=== PATIENT | female | born 1975 ===

== ENCOUNTER 2017-08-02 12:39 | Emergency (ER) | payer OTHER ==
--- NOTE | 2017-08-02 18:29 | OBHP ---
Datetime: 08/02/2017 14:31 IP Adm Impression: , intrauterine ; No Active Labor IP Admit Plan: Discharge home Admit Comment, IP Provider: 41 y.o. LMP unsure, BLADIMIR 08/31/17, EGA 35w 6d, referred for NST maxim rubalcava to [place] cord insertion of her placenta. (+) AFM; denies LOF, VB, Ctx. Not sexually active - "I just don't like it". care: [facility] - denies any issues. AMA. Last visit 08/01/17; next visit 08/07/17. P Ob: primip P SPOT FACER: 15 x monthly x 5. Denies h/o STI. (+) abnl Pap 2007, S/P cryo; Pap since have been (-). No h/o fibroids. PMH: denies PSH: 2016, removal of cysts from her scalp NKDA Meds: PNV - QD Soc Hx; denies tobacco, illicit drug or EtOh use. With FOB x 3yrs; lives with him. 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 Father alive 66 - HTN. MGM - skin cancer P.E.: as above. Mildly obese in NAD. Awake, alert, oriented to time, person and place. Pleasant a nd cooperative Assessment: 41 y.o. P0, 35w 6d, Batt[place] cord insertion of placenta. NST reactive/ Category 1 tr acing. S/P BPP today, BPS /8. Clinically stable. Plan: 1) Discharge home 2) Reviewed S/S PTL 3) Keep scheduled appointments Pelvic Type - PN: Not Done Extremities - PN: Normal Abdomen - PN: Normal Back - PN: Normal Breast - PN: Not Done Lungs - PN: Normal Heart - PN: Normal Thyroid - PN: Not Done Neurologic - PN: Normal HEENT - PN: Normal General - PN: Normal FHR - Baseline A Provider: 160 Contraction Comments Provider: none Comments, ACOG Physical Exam: Abdomen: Gravid. Soft, non tender. Fundal height 36 cm All other systems reviewed and are negative Gestation - Est Wks by US: 35w 6d EGA AdmitDate IP: 35.6 Vital Signs Provider: Reviewed IP Chief Complaint: evaluation NICHD Variability Prov Fetus A: Moderate 6-25bpm NICHD Accel Fetus A IP Provider: 15X15 FHR Category Provider Fetus A: Category I NICHD Decel Fetus A IP Provider: None Dilatation, Provider: deferred Genitourinary Exam: Not Done DTRs - PN: Not Done
[2017-08-02 19:41] VITALS: BP 111/58; PULSE 92
== END 2017-08-02 15:22 | disposition home or self-care (01) ==
LOC: C.EROB 12:39
DX: Z36.89 Encounter for other specified antenatal screening (principal); Z3A.35 35 weeks gestation of pregnancy

== ENCOUNTER 2017-08-27 09:32 | Inpatient (IN) | payer OTHER ==
--- NOTE | 2017-08-27 10:18 | OBADHP ---
Datetime: 08/27/2017 09:54 IP Chief Complaint Other: Vaginal Spotting after wiping Admit Comment, IP Provider: 41yo with IUP at 39wks c/o pinkish discharge after wiping this morn ing. She feels good movements and denies LOF.Pt is an AMA and has been having weekly BPP. H/O b att[place]ore insertion of the placenta which has subsequently reported anterior positioning from latest ultrasounds. TOCO- None FHR- 150, Minimal to moderate variability, Vertex, Cx: 0/50/-3 Assessment: IUP at 39+weeks AMA with Category 2 tracing Plan: Admit to LND Induction of labor Cytotec 25mcg for cervical ripening. Pelvic Type - PN: Adequate Extremities - PN: Normal Abdomen - PN: Normal Back - PN: Normal Breast - PN: Normal Lungs - PN: Normal Heart - PN: Normal Thyroid - PN: Normal Neurologic - PN: Normal HEENT - PN: Normal General - PN: Normal Presentation-Admit: Vertex FHR - Baseline A Provider: 150 Membranes, Provider: Intact Contraction Comments Provider: None Comments, ACOG Physical Exam: Abd: Soft, NT, BS- present Gestation - Est Wks by US: 39.0 Vital Signs Provider: Reviewed IP Chief Complaint: Other NICHD Variability Prov Fetus A: Moderate 6-25bpm NICHD Accel Fetus A IP Provider: 15X15 Dilatation, Provider: 0 Effacement, Provider: 50 Station, Provider: -3 Genitourinary Exam: Normal DTRs - PN: Normal EGA AdmitDate IP: 39.3 IP Adm Impression: Term, intrauterine ; No Active Labor IP Admit Plan: Admit to unit; Initiate labor protocol Datetime: 08/02/2017 14:31 FHR Category Provider Fetus A: Category I NICHD Decel Fetus A IP Provider: None
[2017-08-27 10:20] VITALS: BMI 41.9
[2017-08-27] MEDS ORDERED: Lactated Ringer's 1,000 ML IV SCH (10:30)
[2017-08-27 10:46] LABS: SQUAMOUS EPITHIAL 4 /hpf (0-5); URINE BILIRUBIN NEGATIVE (NEGATIVE); URINE BLOOD NEGATIVE (NEGATIVE); URINE CLARITY Clear (Clear); URINE COLOR Yellow (YELLOW); URINE GLUCOSE (UA) NORMAL (Normal); URINE LEUKOCYTE ESTERASE NEG Leu/uL (Negative); URINE NITRATE NEGATIVE (NEGATIVE); URINE PROTEIN NEGATIVE (NEGATIVE); URINE UROBILINOGEN NORMAL mg/dL (0.2-1.0)
[2017-08-27 10:49] LABS: BASO % 0.4 % (0.0-2.0); EOS # 0.1 K/uL (0.0-0.7); EOS % 0.6 % (0.0-4.0); HEMOGLOBIN 11.9 g/dL (11.0-16.0); LYMPH # 1.4 K/uL (1.0-4.3); LYMPH % 15.5 % (20.0-40.0); MEAN CELL VOLUME 70.9 fL (81.0-99.0); MEAN CORPUSCULAR HEMOGLOBIN 22.9 pg (27.0-31.0); MEAN CORPUSCULAR HGB CONC 32.3 g/dL (33.0-37.0); MONO # 0.7 K/uL (0.0-0.8); MONO % 7.6 % (0.0-10.0); NEUT # 6.9 K/uL (1.8-7.0); NEUT % 75.9 % (50.0-75.0); NRBC % 0.2 % (0.0-2.0); RBC 5.22 Mil/uL (3.80-5.20); WHITE BLOOD COUNT 9.1 K/uL (4.8-10.8)
[2017-08-27 10:56] LABS: ALBUMIN 3.2 g/dL (3.5-5.0); ALT/SGPT 21 U/L (9-52); AST/SGOT 18 U/L (14-36); BLOOD UREA NITROGEN 8 mg/dL (7-17); CALCIUM 8.2 mg/dl (8.6-10.4); GFR AFRICAN-AMERICAN > 60; GFR NON-AFRICAN AMERICAN > 60
[2017-08-27] MEDS ORDERED: Fentanyl/Bupivacaine HCl 250 ML EPI ONE (15:15)
[2017-08-27] MEDS ORDERED: Lidocaine 2% Inj (20ml) ONE (15:32)
[2017-08-27] MEDS ORDERED: Oxytocin 30 UNIT 30 UNITS/500 ML BAG IV SCH (19:00)
[2017-08-28] MEDS ORDERED: Fentanyl/Bupivacaine HCl 250 ML EPI ONE (07:11)
[2017-08-28] MEDS ORDERED: Benzocaine/Menthol 20%-0.5% Topical Spray (60 ml) TOP PRN (16:15)
[2017-08-28] MEDS ORDERED: Oxycodone/Acetaminophen 5/325 mg Tab PO PRN (16:15)
--- NOTE | 2017-08-28 18:52 | OBDS ---
DELIVERY PERSONNEL Delivery Doctor: Tha Solano MD Clarifier Operator Helper: Jamison Price RN Anesthesiologist: Yvette Resident: aj MATERNAL INFORMATION Delivery Anesthesia: Local; Epidural Estimated Blood Loss (ml): 300 Placenta Cultured: No Maternal Complications: None Provider Comments: This 41 year old G1 now P1 delivered a viable female via on 08/28/17 a t 15:39. Patient was fully dilated and pushing. The infant's head was delivered in a controlled gonzalo r. Loose nuchal x 1 was reduced. The 's body and shoulders were delivered atraumatically. Infan t's mouth and nose were suctioned with bulb syringe. The was placed on mother's abdomen. Cord blood and cord gas was collected and sent to the lab. (Cord pH 7.21). Intact 3VC placenta was delive red and sent to pathology. EBL 300ccs. The second degree vaginal laceration was repaired with anatomi c reapproximation with 2-0 chromic suture in a continuous fashion. Adequate hemostasis was achieved. Infant weighed 7lbs 0oz with APGARS of 9 and 9. Mom and baby are recovering in stable condition. All instrument and sponge counts were correct. Dr. Solano was present for entire delivery. Марина Liu DO PGY-1 Attending Note: I was present for the entire delivery. I agree with the recording of events as karyna cribed above. NB: uterine exploration was performed. Cervix, vagina, perineum inspected - second degree vaginal laceration as noted above was found; and repaired. LABOR SUMMARY EDC: 08/31/2017 00:00 No. Babies in Womb: 1 Attempted: No Labor Anesthesia: Epidural LABOR INFORMATION Reason for Induction: Not Applicable Onset of Labor: 08/27/2017 15:00 Complete Dilatation: 08/28/2017 12:25 Cervical Ripening Agents: Cytotec @ 25 Oxytocin: Augmentation Group B Beta Strep: Negative Antibiotics # of Doses: 0 Steroids Given: None Reason Steroids Not Administered: Not Applicable MEMBRANES Membranes Rupture Method: Spontaneous Rupture of Membranes: 08/27/2017 18:50 Length of Rupture (hrs): 20.82 Amniotic Fluid Color: Clear Amniotic Fluid Amount: Moderate Amniotic Fluid Odor: Normal STAGES OF LABOR Stage 1 hrs: 21 Stage 1 min: 25 Stage 2 hrs: 3 Stage 2 min: 14 Stage 3 hrs: 0 Stage 3 min: 12 Total Time in Labor hrs: 24 Total Time in Labor min: 51 VAGINAL DELIVERY Episiotomy: None Laceration Extension: Second Degree Laceration Type: Vaginal Other Laceration: yes Laceration Repair: Yes Laceration Repair Note: 2-0 chromic in routine fashion. Hemostasis assured. Patient tolerated proced ure well. Clinically stable. Initial Vag Sponge Count: 10 Final Vag Sponge Count: 10 Initial Vag Sharps Count: 1 Final Vag Sharps Count: 1 Sponge Count Correct: Yes Sharps Count Correct: Yes Count Comment: Correct BABY A INFORMATION Infant Delivery Date/Time: 08/28/2017 15:39 Method of Delivery: Vaginal Born in Route : No : N/A Forceps: N/A Vacuum Extraction: N/A Shoulder Dystocia : No SHOULDER DYSTOCIA BABY A Infant Delivery Date/Time: 08/28/2017 15:39 PRESENTATION/POSITION BABY A Presentation: Cephalic Cephalic Presentation: Vertex Vertex Position: Right Occipital Anterior Breech Presentation: N/A PLACENTA INFORMATION BABY A Placenta Delivery Time : 08/28/2017 15:51 Placenta Method of Delivery: Spontaneous Placenta Status: Delivered SCORES BABY A Heart Rate 1 min: >100 bpm Resp Effort 1 min: Good Cry Reflex Irritability 1 min: Cough or Sneeze or Pulls Away Muscle Tone 1 min: Active Motion Color 1 min: Body [place], Extremities Blue Resuscitation Effort 1 min: Tactile Stimulation SCORE 1 MIN: 9 Heart Rate 5 min: >100 bpm Resp Effort 5 min: Good Cry Reflex Irritability 5 min: Cough or Sneeze or Pulls Away Muscle Tone 5 min: Active Motion Color 5 min: Body [place], Extremities Blue Resuscitation Effort 5 min: N/A SCORE 5 MIN: 9 INFORMATION BABY A Gestational Age at Delivery: 39.4 Gestational Status: Term Outcome : Liveborn Condition : Stable Infant Sex: Female IDENTIFICATION/MEDS BABY A ID Band Number: [id number] ID Band Location: Left Leg; Left Arm Sensor Applied: Yes Sensor Number: [id number] Sensor Location : Cord Clamp WEIGHT/LENGTH BABY A Infant Birthweight (gms): 3175 Infant Weight (lb): 7 Weight (oz): 0 Infant Length Inches: 19.00 Length cms: 48.3 CORD INFORMATION BABY A No. Cord Vessels: 3 Nuchal Cord : Around Neck x1, Loose Cord pH Baby Venous: 7.27 Cord Blood Taken: Yes Suction: Mouth; Nose
[2017-08-28] MEDS: Hemorrohoidal Ointment (2 oz) TOP SCH (21:09)
[2017-08-29 08:20] LABS: BASO # 0.1 K/uL (0.0-0.2); BASO % 0.3 % (0.0-2.0); EOS # 0.1 K/uL (0.0-0.7); EOS % 0.5 % (0.0-4.0); LYMPH # 1.7 K/uL (1.0-4.3); LYMPH % 10.1 % (20.0-40.0); MEAN CELL VOLUME 70.5 fL (81.0-99.0); MEAN CORPUSCULAR HEMOGLOBIN 23.3 pg (27.0-31.0); MEAN PLATELET VOLUME 7.8 fL (7.2-11.7); MONO # 1.1 K/uL (0.0-0.8); MONO % 6.6 % (0.0-10.0); NEUT # 13.9 K/uL (1.8-7.0); NEUT % 82.5 % (50.0-75.0); RBC 4.3 Mil/uL (3.80-5.20); RED CELL DISTRIBUTION WIDTH 15.9 % (11.5-14.5)
[2017-08-29 08:27] LABS: WHITE BLOOD COUNT 16.9 K/uL (4.8-10.8)
[2017-08-29] MEDS: Hemorrohoidal Ointment (2 oz) TOP SCH ×3 (10:00→18:12)
--- NOTE | 2017-08-29 19:54 | OBPPN ---
Datetime: 08/29/2017 08:08 PP Pain Prov: Within normal limits PP Nausea Prov: Denies PP Flatus Prov: No PP BM Prov: No PP Heart Prov: Normal PP Lungs Prov: Normal PP Abdomen/Uterus Prov: Normal PP Lochia Prov: Normal PP Extremities Prov: Normal PP Progress Prov: Normal PP Comments Phys Exam Prov: Abdomen: soft, nontender, fundus firm 1 fingerbreath above umbilicus PP Impression Prov: Normal progression PP Plan Prov: Continue present management PP Progress Note Prov: Patient seen and examined at bedside and in no acute distress. Patient has mi ld pain in her lower back which she rates 3/10. Patient denies any abdominal or vaginal pain. Patient has less bleeding today and says she has gone through 2 pads since yesterday. Patient has a good agustin etite with no nausea or vomiting. Patient having no gas or bowel movement. Patient ambulating well an d breast feeding. Patient denies headache, chest pain, or shortness of breath. Labs: 16.9>10/30.3<258 PE: Gen: AAOx3, NAD Cardio: RRR, +S1, S2 Pulm: clear to auscultation bilaterally Abdomen: soft, tender, incision c/d/i, fundus firm 1 fingerbreath above umbilicus Ext: no edema, no clubbing, no cyanosis A_P: 41 y/o F s/p with second degree lacteration PPD#1 1. Stable, afebrile 2. pain managed with Percocet and Motrin 3. encourage ambulation and hydration 4. encourage breast feeding 5. plans discussed with Dr. José Antonio Rich, PGY1 patient examined.agree with resident exam, assessment an dplan Vital Signs Provider PP: Reviewed
[2017-08-30 07:40] LABS: BASO # 0.1 K/uL (0.0-0.2); BASO % 0.6 % (0.0-2.0); EOS # 0.2 K/uL (0.0-0.7); EOS % 1.3 % (0.0-4.0); HEMOGLOBIN 9.9 g/dL (11.0-16.0); LYMPH # 2.2 K/uL (1.0-4.3); LYMPH % 17.4 % (20.0-40.0); MEAN CELL VOLUME 71.2 fL (81.0-99.0); MEAN CORPUSCULAR HEMOGLOBIN 23.7 pg (27.0-31.0); MEAN CORPUSCULAR HGB CONC 33.4 g/dL (33.0-37.0); MEAN PLATELET VOLUME 7.9 fL (7.2-11.7); MONO # 0.9 K/uL (0.0-0.8); MONO % 7.2 % (0.0-10.0); NEUT # 9.2 K/uL (1.8-7.0); NEUT % 73.5 % (50.0-75.0); NRBC % 0.1 % (0.0-2.0); RBC 4.17 Mil/uL (3.80-5.20); RED CELL DISTRIBUTION WIDTH 16.4 % (11.5-14.5); WHITE BLOOD COUNT 12.6 K/uL (4.8-10.8)
--- NOTE | 2017-08-30 08:18 | OBDCSUM ---
Datetime: 08/02/2017 14:18 Discharge Diagnosis, Provider: Term Delivered Discharge Comment, Provider: no sex motrin prn ferrrous sulfate f/u i 2wek
--- NOTE | 2017-08-30 08:18 | OBPPN ---
Datetime: 08/30/2017 08:16 PP Pain Prov: Within normal limits PP Nausea Prov: Denies PP Flatus Prov: Yes PP BM Prov: Yes PP Abdomen/Uterus Prov: Normal PP Lochia Prov: Normal PP Extremities Prov: Normal PP Comments Phys Exam Prov: fudus below umblicus ext no becky,no calf ten PP Impression Prov: Normal progression PP Plan Prov: Discharge PP Progress Note Prov: pt was seen at bed side, pain under control,no n/v, tolerating deit,voiding,m in lochia,flatus+ ppd#2 s/p dc home no sex motrin prn ferrous sulfate f/u in clinic in 6weej Vital Signs Provider PP: Reviewed; Within Normal Limits
[2017-08-30] MEDS: Hemorrohoidal Ointment (2 oz) TOP SCH ×3 (11:00→18:01)
[2017-08-30] MEDS ORDERED: Measles, Mumps, and Rubella 0.5 ML VIAL SC ONE (16:00)
[2017-08-30 16:16] VITALS: BP 100/62; PULSE 75; RESP 20; TEMP 97.1
[2017-08-30 22:57] VITALS: O2SAT 96
== END 2017-08-30 18:55 | disposition home or self-care (01) | DRG 775 ==
LOC: C.EROB 09:32 → C.4D 10:13 → C.4M 08-28 17:10
PROVIDERS: ADMIT Obstetrics & Gynecology; ATTEND Obstetrics & Gynecology
PROC: 10E0XZZ Delivery of Products of Conception, External Approach (ICD-10-PCS; principal; 2017-08-27)
PROC: 0KQM0ZZ Repair Perineum Muscle, Open Approach (ICD-10-PCS; 2017-08-27)
DX: O69.81X0 Labor and delivery complicated by cord around neck, without compression, not applicable or unspecified (principal); Z68.41 Body mass index [BMI] 40.0-44.9, adult; O70.1 Second degree perineal laceration during delivery; Z3A.39 39 weeks gestation of pregnancy; Z37.0 Single live birth